=== PATIENT | female | born 1990 | race American Indian/Alaskan Native ===

== ENCOUNTER 2017-12-29 11:06 | Outpatient (CLI) | payer MEDICAID ==
--- NOTE | 2017-12-29 14:03 | Fluoroscopy Report ---
UPPER GI SERIES WITH SMALL BOWEL FOLLOW-THROUGH History: Diarrhea, abdominal pain, gastric bypass surgery. Findings: No comparison. 67 fluoroscopic images were captured during this exam. [employer] film of the abdomen demonstrates a normal bowel gas pattern. No evidence for obstruction or pathologic calcifications. Deglutition is normal. The esophagus is normal caliber mucosal pattern throughout. No evidence for hiatal hernia or reflux during this exam. Only a small gastric pouch remains estimated at 50 cc. No gastric pouch mucosal defect or mass. No ulceration. The anastomosis site to small bowel appears widely patent and without abnormality. Transit time of the contrast agent through the small bowel loops is approximately 1 hour. There is no evidence for mucosal abnormality or abnormal dilatation. The terminal ileum and ileocecal valve region are normal. No cecal filling defect. The appendix is not confidently identified. Impression: Essentially unremarkable exam. Gastric bypass surgery changes are identified which appear intact and without abnormality. Unremarkable small bowel follow-through.
== END 2017-12-29 11:07 | disposition home or self-care (01) ==
LOC: FLUORO 11:06
PROVIDERS: ATTEND Specialist
DX: K63.89 Other specified diseases of intestine (principal); K95.89 Other complications of other bariatric procedure; R19.7 Diarrhea, unspecified; R10.30 Lower abdominal pain, unspecified
CPT/HCPCS: 74249

== ENCOUNTER 2018-02-02 14:36 | Emergency (ER) | payer MEDICAID ==
[2018-02-02 17:20] LABS: Basophils % (Auto) 0.3 % (0.0-1.8); Eosinophils # (Auto) 0.1 K/mm3 (0.0-0.4); Eosinophils % (Auto) 1.1 % (0.0-4.3); Hematocrit 38.7 % (30.3-42.9); Hemoglobin 12.6 gm/dl (10.1-14.3); Lymphocytes # (Auto) 2.9 K/mm3 (1.2-5.4); Lymphocytes % (Auto) 29.8 % (13.4-35.0); Mean Corpuscular HGB Conc 33 % (30-34); Mean Corpuscular Hemoglobin 29 pg (28-32); Mean Corpuscular Volume 88 fl (79-97); Monocytes # (Auto) 1.1 K/mm3 (0.0-0.8); Monocytes % (Auto) 10.9 % (0.0-7.3); Platelet Count 252 K/mm3 (140-440); Red Blood Count 4.42 M/mm3 (3.65-5.03); Red Cell Distribution Width 14.1 % (13.2-15.2)
[2018-02-02 17:40] LABS: Alanine Aminotransferase 70 units/L (7-56); Albumin 3.6 g/dL (3.9-5); BUN/Creatinine Ratio 12; Blood Urea Nitrogen 6 mg/dL (7-17); Calcium 8.8 mg/dL (8.4-10.2); Hemolysis Index 9
[2018-02-02 19:08] LABS: Bacteria,Urine 1+ /HPF (Negative); Bilirubin,Urine NEG (Negative); Blood,Urine NEG (Negative); Color,Urine Amber (Yellow); Hyaline Casts,Urine 2 /LPF; Mucus,Urine 3+ /HPF; Protein,Urine <15 mg/dL mg/dL (Negative); Urobilinogen,Urine < 2.0 mg/dL (<2.0)
[2018-02-02 19:12] LABS: HCG Qualitative,Urine Negative (Negative)
--- NOTE | 2018-02-02 23:51 | XRay Report ---
FINAL REPORT EXAM: XR CHEST ROUTINE 2V HISTORY: Shortness of breath TECHNIQUE: PA and lateral views of the chest were submitted. FINDINGS: The heart size and mediastinum appear normal. The lungs are clear. Pleural fluid is not seen. The bones and soft tissues reveal a dextroscoliosis of the mid thoracic spine. IMPRESSION: No active chest disease.
--- NOTE | 2018-02-03 01:15 | Emergency Department Report ---
ED General Adult HPI - General Chief complaint: Dyspnea/Respdistress Stated complaint: UPPER ABD PAIN/CHEST TIGHTNESS Time Seen by Provider: 02/03/18 00:59 Source: patient Mode of arrival: Ambulatory Limitations: No Limitations - History of Present Illness Initial comments: Patient is 28 years old female with history of gastric bypass surgery by Dr. Dietz. Patient stated that she was recently diagnosed with pneumonia she is on Levaquin. Patient stated that she had abdominal pain today and talked to Dr. Dietz and asked that to come here for further evaluation. Patient stated that her pain is epigastric comes and goes. Patient denied any nausea, no vomiting. Patient stated that she's been having diarrhea. No fever. Patient stated that she is very upset over the waiting time and I told for the workup of abdominal pain we need to order a abdomen CAT scan initially she agreed but then she said she would not do it and she will just follow up with Dr. Dietz in his office. I apologized about the waiting time and she stated that she fine. - Related Data Home Medications Medication Instructions Recorded Confirmed Last Taken Famotidine [Pepcid] 20 mg PO PRN 08/08/17 08/12/17 08/01/17 09:00 Allergies Allergy/AdvReac Type Severity Reaction Status Date / Time Penicillins Allergy Anaphylaxis Verified 02/02/18 17:03 ED Review of Systems ROS: Stated complaint: UPPER ABD PAIN/CHEST TIGHTNESS Other details as noted in HPI Comment: All other systems reviewed and negative Constitutional: denies: chills, fever Respiratory: denies: cough, orthopnea, shortness of breath, SOB with exertion, SOB at rest Cardiovascular: denies: chest pain, palpitations, dyspnea on exertion Gastrointestinal: abdominal pain. 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 - Social History Smoking Status: Never Smoker - Medications Home Medications: Home Medications Medication Instructions Recorded Confirmed Last Taken Type Famotidine [Pepcid] 20 mg PO PRN 08/08/17 08/12/17 08/01/17 09:00 History ED Physical Exam - General Limitations: No Limitations General appearance: alert, in no apparent distress - Head Head exam: Present: atraumatic, normocephalic - Eye Eye exam: Present: normal appearance Pupils: Present: normal accommodation - ENT ENT exam: Present: normal exam, normal orophraynx, mucous membranes moist - Neck Neck exam: Present: normal inspection, full ROM. Absent: tenderness, meningismus, lymphadenopathy - Respiratory Respiratory exam: Present: normal lung sounds bilaterally. Absent: respiratory distress, wheezes, rales, rhonchi, stridor, chest wall tenderness, accessory muscle use, decreased breath sounds, prolonged expiratory - Cardiovascular Cardiovascular Exam: Present: regular rate, normal rhythm, normal heart sounds - GI/Abdominal GI/Abdominal exam: Present: soft, normal bowel sounds. Absent: distended, tenderness, guarding, rebound, rigid, organomegaly, mass, bruit, pulsatile mass , hernia - Extremities Exam Extremities exam: Present: normal inspection, full ROM, normal capillary refill - Back Exam Back exam: Present: normal inspection, full ROM. Absent: CVA tenderness (L) - Neurological Exam Neurological exam: Present: alert, oriented X3, CN II-XII intact, normal gait - Skin Skin exam: Present: warm, intact, normal color ED Course Vital Signs 02/02/18 17:05 Temperature 98.6 F Pulse Rate 103 H Respiratory 16 Rate Blood Pressure 136/84 O2 Sat by Pulse 100 Oximetry ED Medical Decision Making - Lab Data Result diagrams: 02/02/18 17:12 02/02/18 17:10 Critical care attestation.: If time is entered above; I have spent that time in minutes in the direct care of this critically ill patient, excluding procedure time. ED Disposition Clinical Impression: Abdominal pain Disposition: DC-01 TO HOME OR SELFCARE Is pt being admited?: No Condition: Stable Instructions: Abdominal Pain (ED) Referrals: DEDE CROWELL [Other] - 3-5 Days
[2018-02-03 01:45] VITALS: BP 127/82
== END 2018-02-03 01:42 | disposition home or self-care (01) ==
LOC: ED 14:36
DX: R10.9 Unspecified abdominal pain (principal); I10 Essential (primary) hypertension; K21.9 Gastro-esophageal reflux disease without esophagitis; Z88.0 Allergy status to penicillin
CPT/HCPCS: 71046; 80053; 81001; 81025; 84484; 85025; 93005; 93010; 99284